=== PATIENT | male | born 2000 | race African-American/Black ===

== ENCOUNTER 2022-05-14 08:07 | Emergency (ER) | payer MEDICAID, OTHER ==
[2022-05-14] MEDS ORDERED: Ondansetron ODT 4 MG TAB ONE (08:49)
== END 2022-05-14 10:32 | disposition home or self-care (01) ==
LOC: CSHERS 08:07
DX: B34.9 Viral infection, unspecified (principal); Z20.822 Contact with and (suspected) exposure to COVID-19
CPT/HCPCS: 87804; 99283; Q0162; U0003; U0005